=== PATIENT | female | born 1990 | race Caucasian/White ===

== ENCOUNTER 2019-09-05 18:01 | Emergency (ER) | payer MEDICAID ==
[~2019-09-05] VITALS: Ht 175.3 cm; Wt 81.8 kg
[2019-09-05] MEDS ORDERED: CEPH-572 PO (19:30)
[2019-09-05] MEDS ORDERED: MUPI22OI30 TP (19:30)
[2019-09-05] MEDS ORDERED: mupirocin 2% cream 15gm TP ONE (19:43)
[2019-09-05 19:46] VITALS: BP 127/79
[2019-09-05] MEDS ORDERED: mupirocin 2% ointment 22GM TP ONE (19:55)
== END 2019-09-05 19:47 | disposition home or self-care (01) ==
LOC: ER 18:03
DX: N61.0 Mastitis without abscess (principal); L55.9 Sunburn, unspecified; Z79.2 Long term (current) use of antibiotics
CPT/HCPCS: 99283

== ENCOUNTER 2020-10-02 13:32 | Emergency (ER) | payer MEDICAID ==
[~2020-10-02] VITALS: Ht 175.3 cm; Wt 84.1 kg
[2020-10-02 13:46] VITALS: BP 128/76
[2020-10-02 16:04] LABS: EOSINOPHILS # (AUTO) 0.2 X10'3 (0-0.9); EOSINOPHILS % (AUTO) 1.6 % (0-6); HEMOGLOBIN 14.7 g/dl (12.0-16.0); LYMPHOCYTES # (AUTO) 0.8 X10'3 (1.1-4.8); MONOCYTES # (AUTO) 0.8 X10'3 (0-0.9); NEUTROPHILS # (AUTO) 12.9 X10'3 (1.8-7.7)
[2020-10-02 16:06] LABS: BASOPHILS # (AUTO) 0.1 X10'3 (0-0.2); BASOPHILS % (AUTO) 0.4 % (0-1); HEMATOCRIT 43.3 % (35.0-45.0); LYMPHOCYTES % (AUTO) 5.3 % (21-51); MEAN CORPUSCULAR HEMOGLOBIN 29.5 PG (27.0-31.0); MEAN CORPUSCULAR HGB CONC 33.9 g/dL (33.0-36.5); MEAN PLATELET VOLUME 8.6 FL (7.4-10.4); MONOCYTES % (AUTO) 5.7 % (2-12); PLATELET COUNT 266 X10'3 (140-440); RED BLOOD COUNT 4.98 X10'6 (4.20-5.60); RED CELL DISTRIBUTION WIDTH 13.4 % (11.5-14.5); WHITE BLOOD COUNT 14.8 X10'3 (4.5-11.0)
[2020-10-02] MEDS ORDERED: [UNRECOGNIZED DRUG - CODE] PO (16:20)
[2020-10-02] MEDS ORDERED: AZIT-63 PO (16:20)
[2020-10-02 16:21] LABS: ALANINE AMINOTRANSFERASE 30 U/L (12-78); ALBUMIN/GLOBULIN RATIO 1.1 (1.1-1.5); ALKALINE PHOSPHATASE 149 IU/L (46-116); ANION GAP 13 (8-16); ASPARTATE AMINO TRANSFERASE 16 U/L (10-37); BILIRUBIN,TOTAL 0.6 MG/DL (0.1-1.0); BLOOD UREA NITROGEN 7 MG/DL (7-18); BUN/CREATININE RATIO 7.4 (6.6-38.0); CALCIUM 8.8 MG/DL (8.5-10.1); CHLORIDE 106 MMOL/L (99-107); CREATININE 0.94 MG/DL (0.40-0.90); GLUCOSE 100 MG/DL (70-104); POTASSIUM 4.2 MMOL/L (3.5-5.1); SODIUM 142 MMOL/L (135-145); TOTAL PROTEIN 7.8 G/DL (6.4-8.2); eGFR 71 ML/MIN
== END 2020-10-02 17:28 | disposition home or self-care (01) ==
LOC: ER 13:33
DX: J18.8 Other pneumonia, unspecified organism (principal); Z20.822 Contact with and (suspected) exposure to COVID-19
CPT/HCPCS: 36415; 71045; 80053; 85025; 87635; 99284; C9803

== ENCOUNTER 2023-07-17 12:53 | Outpatient (CLI) | payer MEDICAID | END 2023-07-17 23:59 | disposition home or self-care (01) | LOC: RAD 12:53 | PROVIDERS: ATTEND Obstetrics & Gynecology | DX: Z34.83 Encounter for supervision of other normal pregnancy, third trimester (principal); Z3A.38 38 weeks gestation of pregnancy | CPT/HCPCS: 76805 ==

== ENCOUNTER 2024-08-16 00:04 | Emergency (ER) | payer MEDICAID, SELFPAY ==
[~2024-08-16] VITALS: Ht 175.3 cm; Wt 111.8 kg
[2024-08-16 00:37] LABS: BILIRUBIN,URINE NEGATIVE (Neg); CLARITY,URINE CLOUDY (Clear); COLOR,URINE YELLOW (Yellow); GLUCOSE, URINE NEGATIVE (Neg); KETONES,URINE NEGATIVE (Neg); LEUKOCYTE ESTERASE ,URINE MODERATE (Neg); NITRITES, URINE POSITIVE (Neg); OCCULT BLOOD,URINE LARGE (Neg); PH,URINE 6.5 (4.8-8.0); PROTEIN,URINE 30 mg/dl (Neg)
[2024-08-16 00:41] LABS: UA COLLECTION TYPE VOIDED
[2024-08-16 00:44] LABS: BACTERIA,URINE 3+ /HPF (Neg); SQUAMOUS EPITHELIAL CELL,UR MANY /LPF (FEW); WBC,URINE TNTC /HPF (0-4)
--- NOTE | 2024-08-16 01:14 | Physician Documentation ---
History of Present Illness ~ Chief Complaint: Urinary Symptoms Stated Complaint: POSS UTI Time Seen by MD: 01:09 Primary Medical Doctor: None Source: patient Mode of Arrival: POV Exam Limitations: no limitations HPI Chief Complaint: Burning with urination Caveat: None Independent Historians: None History of Present Illness: Patient is a healthy 33-year-old woman who comes in complaining of burning with urination that started least eight days ago. Today patient developed suprapubic pain radiating around to the right flank. Patient also complains of pain in the suprapubic area. No vaginal discharge. Patient states that she had a fever earlier today but does not know how high it was. Patient has had chills. No nausea or vomiting. No other associated symptoms. No alleviating or exacerbating factors. Review of systems: All systems were reviewed and are negative except for what is indicated in the history of present illness. Past Medical History: None Past Surgical History: Social History: No tobacco use, no alcohol use, no drug use Medications: Reviewed as documented Nursing Notes Allergies: Reviewed as documented in Nursing Notes Medication Reconciliation Allergies: Coded Allergies: No Known Allergies (Unverified , 09/05/19) Scheduled Cephalexin*Monohydrate* (Keflex*), 2 CAP PO BID Past Medical History Past Medical History: No Pertinent History Past Surgical History: no surgical history Lives In: Home Review of Systems All Other Systems at this time: Reviewed and Negative ROS Patient denies any other acute symptoms other than above. All other systems are negative Physical Exam Vital Signs: RN Vital Signs have been reviewed: Yes, Temperature: 97.7, Source: Temporal, Heart Rate: 125, Respiratory Rate: 18, BP: 144/89, Pulse Oximetry: 97, Weight: 111.850 Oxygen Flow Rate: 0 Pulse Oximetry Reflects: adequate oxygenation Physical Exam General Appearance: Mild distress HEENT: Normal OP, moist oral mucosa, PERRL, EOMI Neck: supple, normal ROM, trachea midline Pulmonary: No respiratory distress, CTA, BS equal Cardiac: RRR, no murmur, rub or gallop, GI: nondistended, soft, nontender, normal bowel sounds, no guarding, no rebound : Suprapubic tenderness, right CVA tenderness, no left CVA tenderness Skin: intact, dry, warm, no rashes Neuro: AAOx3, speech is clear, no focal motor weakness Psych: normal affect, good eye contact, no apparent hallucination, normal speech Progress Results/Orders Results/Orders Orders - ZAKIYA MICHAELS MD Straight Cath For Urine Sample (08/16/24 00:21) Cult Urine + [place] [address] (08/16/24 01:57) Completed Orders - ZAKIYA MICHAELS MD Ua W/Microscopic, Cult If Ind (08/16/24 00:18) Hcg, Ur Ql (08/16/24 01:14) Sulfamethox/Trimetho. Ds Tab (Novra Ds (08/16/24 01:35) Ua W/Microscopic, Cult If Ind (08/16/24 01:25) Medications Received in ER Medications (Trade) Dose Ordered Sig/Rosa Route PRN Reason Start Time Stop Time Status Last Admin Dose Admin ( DS tab) 2 tab ONCE ONCE PO 08/16/24 01:35 08/16/24 01:36 DC 08/16/24 01:41 2 TAB Vital Signs 08/16/24 08/16/24 08/16/24 08/16/24 00:07 01:14 02:11 02:45 Temp 97.7 98.3 Pulse 125 99 Resp 18 16 16 B/P (MAP) 144/89 122/75 Pulse Ox 97 100 O2 Flow Rate 0 Laboratory Tests Test 08/16/24 00:18 08/16/24 01:25 Urine Specimen Description Voided Cln catch midstream Urine Color Yellow Yellow Urine Clarity Cloudy Slightly cloudy Urine pH 6.5 6.5 Urine Specific [place] 1.015 1.020 Urine Protein 30 H 30 H Urine Glucose (UA) Negative Negative Urine Ketones Negative Negative Urine Occult Blood Large H Moderate H Urine Nitrite Positive H Positive H Urine Bilirubin Negative Negative Urine Urobilinogen 1.0 1.0 Urine Leukocyte Esterase Moderate H Small H Urine RBC 10-20 10-20 Urine WBC Tntc H Tntc H Urine Squamous Epithelial Cells Many Few Urine Bacteria 3+ 3+ Urine Culture Indicated Rejected for culture Indicated Volume Urine Centrifuged 10 ml 10 ml Urine Comment Urine HCG, Qualitative Negative Microbiology Date/Time Source Procedure Growth Status 08/16/24 01:57 Urine Clean Catch Midstream Urine Culture - Preliminary Culture received. Resulted Medical Decision Making Findings Differential diagnosis includes but is not limited to: Pyelonephritis, nephrolithiasis, ureterolithiasis, renal colic, urinary tract infection Laboratory data independent interpretation: Urinalysis: CONSISTENT WITH URINARY TRACT INFECTION Emergency department course/medical decision-making: Patient presents with history and physical consistent with acute urinary tract infection and pyelonephritis. Patient was given Bactrim. However the patient will be discharged with a prescription for Keflex. Patient is stable for discharge. She is not septic. She is hemodynamically stable. Lab work is not needed given her history and physical. Test results and treatment plan reviewed with the patient. Departure Time of Disposition: 02:13 Disposition: 01 HOME / SELF CARE / HOMELESS Impression: Primary Impression: Acute urinary tract infection Condition: Stable Discharge Instructions: Pyelonephritis, Adult, Urinary Tract Infection, Adult Additional Instructions: YOU LIKELY HAVE A KIDNEY INFECTION, PYELONEPHRITIS. TAKE THE ANTIBIOTICS DIRECTED. RETURN TO THE EMERGENCY DEPARTMENT IF YOUR SYMPTOMS WORSEN. Prescriptions Cephalexin*Monohydrate* (Keflex*) 500 Mg Capsule 2 CAP PO BID, #20 CAP Prov: ZAKIYA MICHAELS MD 08/16/24 Education Educated: Patient Educated regarding: diagnosis, treatment, need for follow up Signature Scribe Signature: NO SCRIBE Attestation: NO SCRIBE ZAKIYA MICHAELS MD Aug 16, 2024 01:14
[2024-08-16] MEDS: sulfamethoxazole/trimethoprim DS (800/160mg) tablet PO ONE (01:41)
[2024-08-16 01:46] LABS: BILIRUBIN,URINE NEGATIVE (Neg); CLARITY,URINE SLIGHTLY CLOUDY (Clear); COLOR,URINE YELLOW (Yellow); GLUCOSE, URINE NEGATIVE (Neg); KETONES,URINE NEGATIVE (Neg); LEUKOCYTE ESTERASE ,URINE SMALL (Neg); NITRITES, URINE POSITIVE (Neg); OCCULT BLOOD,URINE MODERATE (Neg); PH,URINE 6.5 (4.8-8.0); PROTEIN,URINE 30 mg/dl (Neg)
[2024-08-16 01:48] LABS: URINE HCG NEGATIVE (NEG)
[2024-08-16 01:55] LABS: UA COLLECTION TYPE CLN CATCH MIDSTREAM
[2024-08-16 01:57] LABS: BACTERIA,URINE 3+ /HPF (Neg); SQUAMOUS EPITHELIAL CELL,UR FEW /LPF (FEW); WBC,URINE TNTC /HPF (0-4)
[2024-08-16] MEDS ORDERED: CEPH-585 PO (02:16)
[2024-08-16 02:45] VITALS: BP 122/75; PULSE 99; RESP 16; TEMP 98.3; O2SAT 100
== END 2024-08-16 02:47 | disposition home or self-care (01) ==
LOC: ER 00:05
DX: N39.0 Urinary tract infection, site not specified (principal)
CPT/HCPCS: 81001; 81025; 87077; 87088; 87186; 99283